=== PATIENT | female | born 1950 | race Caucasian/White ===

== ENCOUNTER → 2021-05-01 08:36 | Outpatient (BNVA) | payer MEDICARE, SELFPAY | PROVIDERS: Family Provider Student in an Organized Health Care Education/Training Program; PCP Family Medicine; Visit Provider Family Medicine | DX: E11.9 Type 2 diabetes mellitus without complications (principal); Z13.220 Encounter for screening for lipoid disorders; Z13.6 Encounter for screening for cardiovascular disorders; I10 Essential (primary) hypertension | CPT/HCPCS: 80053; 80061; 83036 ==

== ENCOUNTER → 2022-01-22 08:44 | Outpatient (BNVA) | payer MEDICARE, SELFPAY | PROVIDERS: Family Provider Student in an Organized Health Care Education/Training Program; PCP Family Medicine; Visit Provider Family Medicine | DX: E11.9 Type 2 diabetes mellitus without complications (principal); I10 Essential (primary) hypertension; J45.20 Mild intermittent asthma, uncomplicated; M19.90 Unspecified osteoarthritis, unspecified site; K21.9 Gastro-esophageal reflux disease without esophagitis; Z28.21 Immunization not carried out because of patient refusal | CPT/HCPCS: 80053; 83036 ==

== ENCOUNTER → 2022-04-11 08:45 | Outpatient (BNVA) | payer MEDICARE, SELFPAY | PROVIDERS: Family Provider Student in an Organized Health Care Education/Training Program; PCP Family Medicine; Visit Provider Family Medicine | DX: I10 Essential (primary) hypertension (principal); J45.20 Mild intermittent asthma, uncomplicated; E11.9 Type 2 diabetes mellitus without complications; N18.9 Chronic kidney disease, unspecified | CPT/HCPCS: 80048; 83036; 85025 ==

== ENCOUNTER → 2022-07-18 08:49 | Outpatient (BNVA) | payer MEDICARE, SELFPAY | PROVIDERS: Family Provider Student in an Organized Health Care Education/Training Program; PCP Family Medicine; Visit Provider Family Medicine | DX: I10 Essential (primary) hypertension (principal); J45.20 Mild intermittent asthma, uncomplicated; E11.9 Type 2 diabetes mellitus without complications; N18.32 Chronic kidney disease, stage 3b; R53.83 Other fatigue; E55.9 Vitamin D deficiency, unspecified; S62.613A Displaced fracture of proximal phalanx of left middle finger, initial encounter for closed fracture; X58.XXXA Exposure to other specified factors, initial encounter; M19.042 Primary osteoarthritis, left hand | CPT/HCPCS: 73130; 80048; 82607; 82652; 83036 ==

== ENCOUNTER → 2022-08-13 09:06 | Outpatient (BNVA) | payer MEDICARE, SELFPAY | PROVIDERS: Family Provider Student in an Organized Health Care Education/Training Program; PCP Family Medicine; Visit Provider Family Medicine | DX: N18.32 Chronic kidney disease, stage 3b (principal); R53.83 Other fatigue; S62.619A Displaced fracture of proximal phalanx of unspecified finger, initial encounter for closed fracture; M10.9 Gout, unspecified; X58.XXXA Exposure to other specified factors, initial encounter | CPT/HCPCS: 73130; 80048; 84443; 84550 ==

== ENCOUNTER → 2022-10-16 08:30 | Outpatient (BNVA) | payer MEDICARE, SELFPAY | PROVIDERS: Family Provider Student in an Organized Health Care Education/Training Program; PCP Family Medicine; Visit Provider Family Medicine | DX: Z00.00 Encounter for general adult medical examination without abnormal findings (principal); Z71.89 Other specified counseling; E11.9 Type 2 diabetes mellitus without complications; N18.32 Chronic kidney disease, stage 3b; M10.372 Gout due to renal impairment, left ankle and foot; M10.9 Gout, unspecified; K58.1 Irritable bowel syndrome with constipation; K21.9 Gastro-esophageal reflux disease without esophagitis | CPT/HCPCS: 80048; 81000; 83036; 84550; 85025 ==

== ENCOUNTER → 2022-12-26 10:03 | Outpatient (BNVA) | payer MEDICARE, SELFPAY | PROVIDERS: Family Provider Student in an Organized Health Care Education/Training Program; PCP Family Medicine; Visit Provider Emergency Medicine | DX: I10 Essential (primary) hypertension (principal); K22.70 Barrett's esophagus without dysplasia; N63.22 Unspecified lump in the left breast, upper inner quadrant; D49.2 Neoplasm of unspecified behavior of bone, soft tissue, and skin; K22.719 Barrett's esophagus with dysplasia, unspecified | CPT/HCPCS: 80053; 84443; 85025 ==

== ENCOUNTER → 2022-12-31 08:51 | Outpatient (BNVA) | payer MEDICARE, SELFPAY | PROVIDERS: Family Provider Student in an Organized Health Care Education/Training Program; PCP Family Medicine; Visit Provider Family Medicine | DX: D49.2 Neoplasm of unspecified behavior of bone, soft tissue, and skin (principal); R22.1 Localized swelling, mass and lump, neck | CPT/HCPCS: 71046 ==

== ENCOUNTER → 2023-01-03 08:54 | Outpatient (BNVA) | payer MEDICARE, SELFPAY | PROVIDERS: Family Provider Student in an Organized Health Care Education/Training Program; PCP Family Medicine; Visit Provider Otolaryngology | DX: R22.1 Localized swelling, mass and lump, neck (principal); K21.9 Gastro-esophageal reflux disease without esophagitis; E04.1 Nontoxic single thyroid nodule | CPT/HCPCS: 99203; 99204 ==

== ENCOUNTER 2023-01-09 07:32 | Outpatient (CLI) | payer MEDICARE, SELFPAY ==
--- NOTE | 2023-01-09 08:00 | US_ITS ---
WS: [id number] ULTRASOUND THYROID FNA CLINICAL INFORMATION: Thyroid nodule TECHNIQUE: Ultrasound-guided FNA FINDINGS: Outside comparison imaging reviewed 01/02/2023. The procedure including risks, benefits, and complications were discussed with the patient who agreed to proceed. Timeout was performed. Using sterile technique patient was prepped and draped in usual s terile fashion. After 1% lidocaine, using ultrasound guidance, a 25-gauge needle was advanced into th e LEFT superior pole thyroid nodule at the isthmus. 5 passes were made with active aspiration. Pathol oj was present for slide preparation. No immediate complications. Next the LEFT inferior lower pole nodule was localized.After 1% lidocaine, using ultrasound guidance, a 25-gauge needle was advanced into the LEFT inferior pole thyroid nodule. 6 passes were made with a ctive aspiration. Pathology was present for slide preparation. No immediate complications. Patient remained in the ultrasound suite 10 minutes postprocedure with intermittent ultrasound to ens ure no hematoma. No hematoma 10 minutes postprocedure. IMPRESSION: 1. Uncomplicated ultrasound-guided thyroid FNA of 2 LEFT thyroid nodules 2. Recommend 12-month follow-up ultrasound of the remaining nodules. Several subcentimeter hypoechoi c and isoechoic nodules in the RIGHT thyroid.
== END 2023-01-09 07:33 | disposition home or self-care (01) ==
PROVIDERS: PCP Family Medicine; Visit Provider Otolaryngology
DX: E04.1 Nontoxic single thyroid nodule (principal); R22.1 Localized swelling, mass and lump, neck
CPT/HCPCS: 10005; 88173

== ENCOUNTER → 2023-01-15 09:53 | Outpatient (BNVA) | payer MEDICARE, SELFPAY | PROVIDERS: PCP Family Medicine; Visit Provider Emergency Medicine | DX: Z20.822 Contact with and (suspected) exposure to COVID-19 (principal); R69 Illness, unspecified; U07.1 COVID-19 | CPT/HCPCS: 87400; 87426 ==

== ENCOUNTER 2023-01-24 08:23 | Outpatient (CLI) | payer MEDICARE, SELFPAY ==
--- NOTE | 2023-01-24 09:00 | CT_ITS ---
WS: [id number] CT NECK WITH CONTRAST HISTORY: masses of neck TECHNIQUE: Contiguous 2 mm axial images are performed through the neck with intravenous contrast. Sag ittal and coronal reformats are also submitted. All CT scans at [facility] use at least one o f these dose optimization techniques: automated exposure control; mA and/or kV adjustment per patient size (includes targeted exams where dose is matched to clinical indication); or iterative reconstruc tion. CONTRAST: CONTRAST: Omnipaque 350; 100 mL IV. DLP: 170.21 mGy.cm COMPARISON: Thyroid ultrasound 01/09/2023 Nasopharynx, oropharynx, hypopharynx and larynx are unremarkable. No soft tissue masses or abnormal e nhancement. Very mild asymmetry involving the [place] tonsils. No enhancing mass. LEFT [place] tonsil is slight ly more prominent than the RIGHT. No significant lymphadenopathy is identified. Normal salivary glands. Normal parotid and submandibular glands. There are very small bilateral nodul es within each thyroid. Thyroid is very slightly heterogeneous. The largest nodule measures 5 mm in t he superior pole of the LEFT thyroid. No osseous abnormalities. Visualized portions of the skull base demonstrate no abnormalities. Orbits and globes are within norm al limits. No soft tissue masses. Visualized paranasal sinuses and mastoid air cells are normal. Dependent changes and poor inspiration at the lung apices. 4 mm noncalcified nodule RIGHT upper lobe. There are a few additional opacifications which might improved with better inspiratory effort. IMPRESSION: 1. No lymphadenopathy along the cervical chains. 2. Very minimal nodularity throughout the thyroid gland. There are few nodules which are less than a centimeter. 3. Very slight asymmetry of the LEFT [place] tonsil which is larger than the RIGHT. No mass identifi ed. This can be readily evaluated by ENT. 4. Noncalcified 4 mm nodule RIGHT upper lobe. There are additional opacifications which might improved with better inspiration. Consider follow-up chest CT with IV contrast to evaluate for additional nodules and determine baseline exam.
[2023-01-24] MEDS: iohexol 350 mg/mL 500 mL Btl (per mL) IV (09:15)
== END 2023-01-24 08:24 | disposition home or self-care (01) ==
PROVIDERS: PCP Family Medicine; Visit Provider Otolaryngology
DX: E04.1 Nontoxic single thyroid nodule (principal); R22.1 Localized swelling, mass and lump, neck
CPT/HCPCS: 70491; Q9967

== ENCOUNTER → 2023-02-03 13:39 | Outpatient (BNVA) | payer MEDICARE, SELFPAY | PROVIDERS: PCP Family Medicine; Visit Provider Family Medicine | DX: N18.9 Chronic kidney disease, unspecified; E11.22 Type 2 diabetes mellitus with diabetic chronic kidney disease | CPT/HCPCS: 80048; 83036 ==

== ENCOUNTER → 2023-05-22 08:37 | Outpatient (BNVA) | payer MEDICARE, SELFPAY | PROVIDERS: PCP Family Medicine; Visit Provider Family Medicine | DX: N18.32 Chronic kidney disease, stage 3b (principal); K21.9 Gastro-esophageal reflux disease without esophagitis; I10 Essential (primary) hypertension; K58.1 Irritable bowel syndrome with constipation; E11.9 Type 2 diabetes mellitus without complications; J45.20 Mild intermittent asthma, uncomplicated; M10.9 Gout, unspecified; R91.1 Solitary pulmonary nodule; R93.89 Abnormal findings on diagnostic imaging of other specified body structures; E04.2 Nontoxic multinodular goiter; I67.2 Cerebral atherosclerosis; M10.372 Gout due to renal impairment, left ankle and foot; M19.90 Unspecified osteoarthritis, unspecified site | CPT/HCPCS: 80061; 80069; 81000; 82310; 82570; 82652; 83036; 83970; 84156; 84550 ==

== ENCOUNTER 2023-06-10 12:28 | Outpatient (CLI) | payer MEDICARE, SELFPAY ==
[2023-06-10] MEDS: iohexol 350 mg/mL 500 mL Btl (per mL) IV (13:00)
--- NOTE | 2023-06-10 13:00 | CT_ITS ---
WS: [id number] CT chest w con* [id number] HISTORY: R91.1 - Solitary pulmonary nodule TECHNIQUE: Axial imaging performed through the thorax. Coronal and sagittal reformats are submitted. All CT scans at [facility] use at least one of these dose optimization techniques: automated exposure control; mA and/or kV adjustment per patient size (includes targeted exams where dose is mat ched to clinical indication); or iterative reconstruction. CONTRAST: Omnipaque 350; 100 mL IV. DLP: 370.12 mGy.cm COMPARISON: Neck CT 01/24/2023 Lungs and central airway: Reidentified is 3 mm noncalcified nodule in the periphery RIGHT upper lobe, image 14 series 4. The additional opacifications have completely resolved. Very mild platelike atele ctasis in the RIGHT middle lobe. Pleura: Normal. No pleural effusion. Heart and pericardium: Normal size heart with no pericardial effusion. Mediastinum and thelma: No mediastinum or hilar adenopathy. Vessels: Normal size aortic and pulmonary artery. No coronary artery calcifications. Chest wall and lower neck: No soft tissue masses. Upper abdomen: Hepatic steatosis Small hiatal hernia. No adrenal mass. Osseous structures: Slight increase in the thoracic kyphosis. IMPRESSION: 1. No change in the 3 mm noncalcified nodule in the RIGHT upper lobe. Due to its small size and no r isk factors for lung cancer no additional imaging is necessary. If the patient does have increased ri sk factors consider follow-up chest CT in 12 months. 2. No adenopathy.
== END 2023-06-10 12:29 | disposition home or self-care (01) ==
PROVIDERS: PCP Family Medicine; Visit Provider Family Medicine
DX: R91.1 Solitary pulmonary nodule (principal); R93.89 Abnormal findings on diagnostic imaging of other specified body structures
CPT/HCPCS: 71260; Q9967

== ENCOUNTER → 2023-10-29 08:41 | Outpatient (BNVA) | payer MEDICARE, SELFPAY | PROVIDERS: PCP Family Medicine; Visit Provider Family Medicine | DX: E11.9 Type 2 diabetes mellitus without complications (principal); I10 Essential (primary) hypertension | CPT/HCPCS: 80048; 83036 ==

== ENCOUNTER → 2024-01-13 08:50 | Outpatient (BNVA) | payer MEDICARE, SELFPAY | PROVIDERS: PCP Family Medicine; Referring Provider Family Medicine; Visit Provider Family Medicine | DX: N18.32 Chronic kidney disease, stage 3b (principal) | CPT/HCPCS: 80069; 82043; 82310; 83970; 85007; 85027 ==

== ENCOUNTER → 2024-05-12 08:54 | Outpatient (BNVA) | payer MEDICARE, SELFPAY | PROVIDERS: PCP Family Medicine; Referring Provider Family Medicine; Visit Provider Family Medicine | DX: E11.9 Type 2 diabetes mellitus without complications (principal); I10 Essential (primary) hypertension | CPT/HCPCS: 80053; 83036 ==

== ENCOUNTER → 2024-11-09 08:35 | Outpatient (BNVA) | payer MEDICARE, SELFPAY | PROVIDERS: PCP Family Medicine; Visit Provider Family Medicine | DX: E11.9 Type 2 diabetes mellitus without complications (principal); I10 Essential (primary) hypertension | CPT/HCPCS: 80048; 83036 ==